=== PATIENT | male | born 1970 | race Caucasian/White ===

== ENCOUNTER 2021-09-18 11:16 | Emergency (ER) | payer SELFPAY ==
[2021-09-18] MEDS ORDERED: Dexamethasone 4 MG TAB ONE (12:22)
[2021-09-18] MEDS ORDERED: Ibuprofen 800 MG TAB ONE (12:22)
== END 2021-09-18 12:25 | disposition home or self-care (01) ==
LOC: MADERS 11:16
DX: J02.9 Acute pharyngitis, unspecified (principal); M79.10 Myalgia, unspecified site; F17.210 Nicotine dependence, cigarettes, uncomplicated
CPT/HCPCS: 87081; 87430; 87804; 99283; J8540